=== PATIENT | female | born 1965 | race Caucasian/White ===

== ENCOUNTER 2019-02-19 00:37 | Emergency (ER) | payer BC ==
[~2019-02-19] VITALS: Ht 162.6 cm; Wt 63.5 kg
[~2019-02-19 00:37] MED LIST: PROGESTERONE200 MG PO
[2019-02-19] MEDS ORDERED: CRESTOR10 M2 ORAL (00:46)
[2019-02-19 01:05] VITALS: BP 153/85
--- NOTE | 2019-02-19 01:05 | NUR ---
ER Nurse Note: Pt came from home c/o vaginal bleeding for a few years but has gotten worse in the last 2 months; pt stated "I bleed every 10 days, stops then comes back". Prior, pt has a regular menstrual cycle. Pt complains of lower abd pain with bleeding and passing clots more with ADLs. Pt is a&ox4, pallor, no signs of distress. Will continue to [facility].
--- NOTE | 2019-02-19 01:19 | Emergency Room Report ---
History of Present Illness General Chief Complaint: Vaginal Source: Patient Present Illness HPI Is a 53-year-old female with history of dysfunctional uterine bleeding. She had ultrasound and MRI in the past. She described questionable uterine fibroid. She presents with chief complaint of vaginal bleeding. This has been a chronic issue but worse in the last 2 months. She said she has vaginal bleeding every 10 days. She has a visual specialist but did not see her visual specialist for this particular bleeding in the last 2 months. She had D&C and ablation before. She complaining of passing clots and feeling weak. No fever chills but no nausea no vomiting. Nothing made it better. Standing and walking makes it worse. Allergies: Coded Allergies: No Known Allergies (Unverified , 01/01/16) Patient History Past Medical History: see triage record, old chart reviewed Past Surgical History: other Pertinent Family History: none Social History: Denies: smoking Last Menstrual Period: 02/06/19 Now: No Immunizations: other Reviewed Nursing Documentation: PMH: Agreed; PSxH: Agreed Nursing Documentation-PMH Past Medical History: No History, Except For Hx Cardiac Problems: Yes - high cholesterol Hx Cancer: No Hx Gastrointestinal Problems: No - DandC 10/2017 Hx Neurological Problems: No Review of Systems Eye: Denies: eye pain, blurred vision ENT: Denies: ear pain, nose congestion, throat swelling Respiratory: Denies: cough, shortness of breath Cardiovascular: Denies: chest pain, palpitations Gastrointestinal: Denies: abdominal pain, diarrhea, nausea, vomiting Genitourinary: Reports: vag bleed/dc Musculoskeletal: Denies: back pain, joint pain Skin: Denies: rash Neurological: Denies: headache, numbness Endocrine: Denies: increased thirst, increased urine Hematologic/Lymphatic: Denies: easy bruising All Other Systems: negative except mentioned in HPI Physical Exam Vital Signs Date Time Temp Pulse Resp B/P (MAP) Pulse Ox O2 Delivery O2 Flow Rate FiO2 02/19/19 00:42 97.5 76 16 153/85 98 Room Air vitals with high blood pressure Sp02 EP Interpretation: reviewed, normal General Appearance: well appearing, no apparent distress, alert Head: normocephalic, atraumatic Eyes: bilateral eye PERRL, bilateral eye EOMI ENT: hearing grossly normal, normal pharynx Neck: full range of motion, supple, no meningismus Respiratory: chest non-tender, lungs clear, normal breath sounds Cardiovascular #1: regular rate, rhythm, no murmur Gastrointestinal: normal bowel sounds, non tender, no mass, no organomegaly, no bruit, non-distended Musculoskeletal: back normal, gait/station normal, normal range of motion Neurologic: alert, oriented x3 Psychiatric: depressed affect Skin: warm/dry Medical Decision Making Diagnostic Impression: Primary Impression: Dysfunctional uterine bleeding ER Course Patient presents with dysfunctional urine bleeding. Her hemoglobin is stable. Discharged home with follow-up with her visual specialist. She may need a hysterectomy if not better. At this point she is stable for outpatient follow- up. Last Vital Signs Date Time Temp Pulse Resp B/P (MAP) Pulse Ox O2 Delivery O2 Flow Rate FiO2 02/19/19 01:05 97.5 76 16 153/85 98 Room Air Status: unchanged Disposition: HOME, SELF-CARE Condition: Stable Additional Instructions: Follow-up with your visual specialist within a week. Return if symptom worsen. Michael Taylor MD Feb 19, 2019 01:19
[2019-02-19 01:50] LABS: BASOPHILS % (AUTO) 1.4 % (0.0-2.0); EOSINOPHILS % (AUTO) 2.6 % (0.0-3.0); HEMOGLOBIN 12.9 G/DL (12.0-16.0); LYMPHOCYTES % (AUTO) 38.8 % (20.0-45.0); MEAN CORPUSCULAR VOLUME 87 FL (80-99); MONOCYTES % (AUTO) 7.4 % (1.0-10.0); NEUTROPHILS % (AUTO) 49.8 % (45.0-75.0); PLATELET COUNT 367 K/UL (150-450); RED BLOOD COUNT 4.27 M/UL (4.20-5.40); WHITE BLOOD COUNT 9.3 K/UL (4.8-10.8)
[2019-02-19 02:02] LABS: ANION GAP 10 mmol/L (5-15); BLOOD UREA NITROGEN 13 mg/dL (7-18); CALCIUM 8.9 MG/DL (8.5-10.1); CARBON DIOXIDE 25 MMOL/L (21-32); CHLORIDE 99 MMOL/L (98-107); CREATININE 0.7 MG/DL (0.55-1.30); POTASSIUM 4.5 MMOL/L (3.5-5.1); SODIUM 134 MMOL/L (136-145)
[2019-02-19 02:29] VITALS: BP 105/62
--- NOTE | 2019-02-19 02:31 | NUR ---
ER Nurse Note: Pt seen, treated, medically cleared for discharge by ERMD. Discharge instructions given with repeat verbazliaion by pt and spouse. Instructed pt to follow up with primary care provider/OBGYN within one week. ERMD and primary nurse explained the importance of the results; pt undrstood. Pt a&ox4, VSS, no signs of distress. ID band removed. IV removed; site clean and bandaged. Pt left with all belongings with steady gait via own transportation.
== END 2019-02-19 02:30 | disposition home or self-care (01) ==
LOC: EMR 01:14
DX: N93.9 Abnormal uterine and vaginal bleeding, unspecified (principal); E78.00 Pure hypercholesterolemia, unspecified
CPT/HCPCS: 36415; 80048; 85025; 86850; 86900; 86901; 96360; 99284